=== PATIENT | male | born 1955 | race Caucasian/White ===

== ENCOUNTER → 2018-05-20 | Outpatient (CLI) | payer MEDICARE, MEDICAID ==
--- NOTE | 2018-05-20 19:05 | XCELERA REPORT ---
[address] [address] Transthoracic Echocardiogram Report Name: ANIL KUO Age: 63 yrs Gender: Male : 1955 Patient Status: Outpatient Patient Location: [facility] Study Date: 05/20/2018 10:40 AM Height: 70 in Weight: 396 lb BSA: 2.8 m2 Procedure: A complete two-dimensional transthoracic echocardiogram was performed (2D, M-mode, spectral and color flow Doppler). The study was technically difficult with many images being suboptimal in quality. Reason For Study: [id number] Ordering Physician: JASEN TAYLOR Performed By: Ricci Prakash Interpretation Summary The left ventricular ejection fraction is normal. There is mild concentric left ventricular hypertrophy. The left ventricle is grossly normal size. Doppler measurements suggest pseudonormalized left ventricular relaxation, which is associated with grade II/IV or mild to moderate diastolic dysfunction Regional wall motion abnormalities cannot be excluded due to limited visualization. The right ventricle is mild to moderately dilated. The right ventricular systolic function is borderline reduced. The right atrium is mildly dilated. The left atrium is mildly dilated. There is a trace amount of mitral regurgitation There is no mitral valve stenosis. There is no aortic valve stenosis No aortic regurgitation is present. There is a trace or physiologic amount of tricuspid regurgitation Tricuspid regurgitation jet envelope not well defined to measure RV systolic pressure accurately. The aortic root is not well visualized but is probably normal size. The inferior vena cava was not well visualized There is no pericardial effusion. MMode/2D Measurements & Calculations RVDd: 3.7 cm LVIDd: 5.5 cm FS: 31.2 % Ao root diam: 2.7 cm IVSd: 1.1 cm LVIDs: 3.8 cm EDV(Teich): 146.9 ml Ao root area: 5.8 cm2 LVPWd: 1.1 cm ESV(Teich): 61.1 ml LA dimension: 4.0 cm EF(Teich): 58.4 % Doppler Measurements & Calculations MV E max corby: MV P1/2t max corby: Ao V2 max: LV V1 max P.8 cm/sec 86.3 cm/sec 155.1 cm/sec 8.4 mmHg MV A max corby: MV P1/2t: 90.9 msec Ao max P.6 mmHgLV V1 max: 92.2 cm/sec MVA(P1/2t): 2.4 cm2 145.0 cm/sec MV E/A: 0.97 MV dec slope: 278.3 cm/sec2 MV dec time: 0.23 sec PA V2 max: TR max corby: MV P1/2t-pr_phl: 101.2 cm/sec 251.1 cm/sec 90.9 msec PA max P.1 mmHgTR max P.2 mmHg Left Ventricle The left ventricle is grossly normal size. There is mild concentric left ventricular hypertrophy. The left ventricular ejection fraction is normal. Doppler measurements suggest pseudonormalized left ventricular relaxation, which is associated with grade II/IV or mild to moderate diastolic dysfunction. Regional wall motion abnormalities cannot be excluded due to limited visualization. Right Ventricle The right ventricle is mild to moderately dilated. The right ventricle appears to be hypertrophied. The right ventricular systolic function is borderline reduced. Atria The right atrium is mildly dilated. The left atrium is mildly dilated. Interarterial septum not well visualized and not well dopplered. Cannot comment on ASD/PFO presence. Mitral Valve The mitral valve is grossly normal. There is no mitral valve stenosis. There is a trace amount of mitral regurgitation. Aortic Valve The aortic valve is not well visualized secondary to technical limitations. There is no aortic valve stenosis. No aortic regurgitation is present. Tricuspid Valve The tricuspid valve is not well visualized secondary to technical limitations. There is no tricuspid stenosis. There is a trace or physiologic amount of tricuspid regurgitation. Tricuspid regurgitation jet envelope not well defined to measure RV systolic pressure accurately. Pulmonic Valve The pulmonic valve is not well visualized. Great Vessels The aortic root is not well visualized but is probably normal size. The inferior vena cava was not well visualized. Effusions There is no pericardial effusion. : JASEN TAYLOR > Kaz Conway
== END ==
LOC: SP 10:14
PROVIDERS: ATTEND Physician Assistant
DX: R06.09 Other forms of dyspnea (principal)
CPT/HCPCS: 93306